=== PATIENT | male | born 1950 | race Caucasian/White ===

== ENCOUNTER → 2017-05-02 | Outpatient (CLI) | payer MEDICARE ==
[~2017-05-02] MED LIST: CLONAZEPAM0.5 MG PO; K-TAB ER20 MEQ PO; LASIX 40 MG TAB40 MG PO; MIRALAX17 GM PO; NAMENDA10 MG PO; NEURONTIN 300300 MG PO; NORVASC 5 MG TAB5 MG PO; PRILOSEC OTC20 MG PO; SIMVASTATIN20 MG PO; SUBOXONE 8 MG-1 EACH SL; TUDORZA PRESS400 MCG INH; VENTOLIN HFA8 GM INH
== END ==
LOC: RAD 14:17
DX: M54.2 Cervicalgia (principal); M54.5 Low back pain; M51.34 Other intervertebral disc degeneration, thoracic region; M50.30 Other cervical disc degeneration, unspecified cervical region; N20.0 Calculus of kidney; M47.896 Other spondylosis, lumbar region
CPT/HCPCS: 72050; 72072; 72110